=== PATIENT | female | born 1980 | race Caucasian/White ===

== ENCOUNTER 2016-10-11 09:30 | Emergency (ER) | payer OTHER ==
[~2016-10-11] VITALS: Ht 165.1 cm; Wt 81.7 kg
[2016-10-11 10:50] VITALS: BP 135/86
== END 2016-10-11 10:50 | disposition home or self-care (01) ==
LOC: ER 09:30 → EDBD 09:30 → ER 10:50
DX: S01.01XA Laceration without foreign body of scalp, initial encounter (principal); F10.99 Alcohol use, unspecified with unspecified alcohol-induced disorder; W26.8XXA Contact with other sharp object(s), not elsewhere classified, initial encounter; Y93.89 Activity, other specified; Y92.89 Other specified places as the place of occurrence of the external cause; Y99.8 Other external cause status

== ENCOUNTER 2016-10-21 09:44 | Emergency (ER) | payer OTHER ==
[~2016-10-21] VITALS: Ht 165.1 cm; Wt 81.7 kg
[2016-10-21 10:09] VITALS: BP 103/78
== END 2016-10-21 10:10 | disposition home or self-care (01) ==
LOC: ER 09:44
DX: S01.01XD Laceration without foreign body of scalp, subsequent encounter (principal); F10.99 Alcohol use, unspecified with unspecified alcohol-induced disorder; X58.XXXD Exposure to other specified factors, subsequent encounter; Y92.89 Other specified places as the place of occurrence of the external cause; Y99.8 Other external cause status